=== PATIENT | female | born 1990 | race Caucasian/White ===

== ENCOUNTER → 2017-12-27 | Outpatient (CLI) | payer OTHER ==
[2017-12-27 20:00] LABS: BASO # 0.1 10^3/uL (0.0-0.2); BASO % 0.5 % (0.0-1.0); EOS # 0.1 10^3/uL (0.0-0.50); EOS % 1.2 % (0.0-3.0); HEMATOCRIT 40.2 % (36.0-47.0); HEMOGLOBIN 13.6 g/dl (12.0-15.5); IMMATURE GRANULOCYTE % 0.4 % (0-3.0); LYMPH # 2.9 10^3/uL (1.5-6.5); MEAN CORPUSCULAR HEMOGLOBIN 30.6 pg (27.0-33.0); MEAN CORPUSCULAR HGB CONC 33.8 g/dl (32.0-36.5); MEAN CORPUSCULAR VOLUME 90.3 fl (80.0-96.0); MONO # 0.8 10^3/uL (0.0-0.8); MONO % 7.5 % (0.0-5.0); NEUTROPHILS # 7.1 10^3/uL (1.8-7.7); NEUTROPHILS % 64.4 % (36.0-66.0); PLATELET COUNT, AUTOMATED 271 10^3/uL (150-450); RED BLOOD COUNT 4.45 10^6/uL (4.00-5.40); RED CELL DISTRIBUTION WIDTH 11.9 % (11.5-14.5); WHITE BLOOD COUNT 11.1 10^3/uL (4.0-10.0)
[2017-12-27 20:25] LABS: ANION GAP 10 MEQ/L (8-16); BLOOD UREA NITROGEN 13 MG/DL (7-18); CALCIUM LEVEL 8.5 MG/DL (8.5-10.1); CARBON DIOXIDE LEVEL 26 MEQ/L (21-32); CHLORIDE LEVEL 106 MEQ/L (98-107); CREATININE FOR GFR 0.78 MG/DL (0.55-1.30); GLOMERULAR FILTRATION RATE > 60.0 (>60); GLUCOSE, FASTING 53 MG/DL (70-100); POTASSIUM SERUM 4.1 MEQ/L (3.5-5.1); SODIUM LEVEL 142 MEQ/L (136-145); TOTAL 25(OH) VITAMIN D 23.4 NG/ML (30.0-100.0)
== END ==
LOC: M WUC 16:09
DX: R53.83 Other fatigue (principal); E55.9 Vitamin D deficiency, unspecified

== ENCOUNTER → 2018-09-07 | Outpatient (CLI) | payer OTHER ==
[2018-09-07 19:28] LABS: BASO % 0.3 % (0.0-1.0); EOS # 0.1 10^3/uL (0.0-0.50); EOS % 0.8 % (0.0-3.0); HEMATOCRIT 41.3 % (36.0-47.0); HEMOGLOBIN 14.1 g/dl (12.0-15.5); LYMPH # 2.2 10^3/uL (1.5-6.5); LYMPH % 18.8 % (24.0-44.0); MEAN CORPUSCULAR HEMOGLOBIN 30.5 pg (27.0-33.0); MEAN CORPUSCULAR HGB CONC 34.1 g/dl (32.0-36.5); MEAN CORPUSCULAR VOLUME 89.4 fl (80.0-96.0); MONO # 0.7 10^3/uL (0.0-0.8); MONO % 6.1 % (0.0-5.0); NEUTROPHILS # 8.6 10^3/uL (1.8-7.7); NEUTROPHILS % 73.4 % (36.0-66.0); PLATELET COUNT, AUTOMATED 214 10^3/uL (150-450); RED BLOOD COUNT 4.62 10^6/uL (4.00-5.40); WHITE BLOOD COUNT 11.7 10^3/uL (4.0-10.0)
[2018-09-07 21:10] LABS: CHLAMYDIA DNA AMPLIFICATION NEGATIVE (NEGATIVE); GC DNA AMPLIFICATION NEGATIVE (NEGATIVE)
[2018-09-09 12:18] LABS: HIV 1&2 SCREEN CENTAUR NEGATIVE (NEGATIVE); RUBELLA IgG QUALITATIVE SUSCEPTIBLE (IMMUNE)
== END ==
LOC: M WUC 16:17
PROVIDERS: ATTEND Advanced Practice Midwife
DX: Z34.81 Encounter for supervision of other normal pregnancy, first trimester (principal); Z36.89 Encounter for other specified antenatal screening

== ENCOUNTER → 2018-10-17 | Outpatient (CLI) | payer OTHER | LOC: M WUC 13:42 | PROVIDERS: ATTEND Advanced Practice Midwife | DX: Z34.80 Encounter for supervision of other normal pregnancy, unspecified trimester (principal); Z36.89 Encounter for other specified antenatal screening; Z3A.00 Weeks of gestation of pregnancy not specified ==

== ENCOUNTER → 2018-11-08 | Outpatient (CLI) | payer OTHER ==
--- NOTE | 2018-11-08 08:49 | REP ---
Clinical: Anatomical evaluation. Comparison: None . Findings: Examination demonstrates a single live intrauterine in transverse (head to maternal right) presentation. motion is identified by technologist. Placenta is posterior, grade 0 and low-lying approximately 9 mm from the closed internal os. Amniotic fluid volume is normal. Cervix measures 4.2 cm in length and appears closed. No evidence for nuchal cord. Gestational age by LMP 18 weeks 4 days with HERMINIO 04/07/2019 . Gestational age by current measurements 18 weeks 3 day with HERMINIO 04/08/2019 . FHR equals 150 beats per minute. BPD 4.1 cm 18 weeks 2 days HC 15.3 cm 18 weeks 2 days AC 13.0 cm 18 weeks 4 days FL 2.9 cm 18 weeks 5-day HL 3.0 cm 19 weeks 6 days HC/AC ratio 0.73 Estimated weight 248 grams ( 47th percentile). Anatomical assessment demonstrates normal structures including cranium, choroid plexus, cavum, cerebellum/posterior fossa, facial features, lungs, four-chamber heart, diaphragm, stomach, cord insertion/three-vessel cord, kidneys/bladder, spine, and extremities. Impression: 1. in transverse lie demonstrating appropriate interval growth. 2. Low-lying placenta 9 mm from the closed internal os. 3. With the exception of the poorly visualized ventricular outflow tracts, anatomical assessment is complete and normal. Electronically Signed by Bill Gore MD 11/08/2018 08:41 A
== END ==
LOC: M RAD 06:48
PROVIDERS: ATTEND Advanced Practice Midwife
DX: Z34.82 Encounter for supervision of other normal pregnancy, second trimester (principal); Z3A.18 18 weeks gestation of pregnancy

== ENCOUNTER → 2019-01-13 | Outpatient (CLI) | payer OTHER ==
[2019-01-13 20:39] LABS: HEMOGLOBIN 12.7 g/dl (12.0-15.5); MEAN CORPUSCULAR HEMOGLOBIN 32.1 pg (27.0-33.0); MEAN CORPUSCULAR HGB CONC 34.3 g/dl (32.0-36.5); MEAN CORPUSCULAR VOLUME 93.4 fl (80.0-96.0); PLATELET COUNT, AUTOMATED 152 10^3/uL (150-450); RED BLOOD COUNT 3.96 10^6/uL (4.00-5.40); WHITE BLOOD COUNT 12.7 10^3/uL (4.0-10.0)
== END ==
LOC: M WUC 16:02
PROVIDERS: ATTEND Advanced Practice Midwife
DX: O44.42 Low lying placenta NOS or without hemorrhage, second trimester (principal); Z3A.00 Weeks of gestation of pregnancy not specified

== ENCOUNTER → 2019-01-16 | Outpatient (CLI) | payer OTHER ==
--- NOTE | 2019-01-16 08:50 | REP ---
Obstetric ultrasound for follow-up of anatomy: On the prior study dated 11/08/2018 the right and left cardiac ventricular outflow tracts were not optimally visualized. The anatomy previously was otherwise normal. On the study today the cardiac right ventricular outflow tract is optimally visualized and is unremarkable. The cardiac left ventricular outflow tract is again suboptimally demonstrated. On the study today the facial features are suboptimal but were optimally visualized previously and were unremarkable. On the study today the four-chamber view of the heart is suboptimally demonstrated but was optimally demonstrated previously and was unremarkable. The remainder of the anatomy today is unremarkable and unchanged. There is a single intrauterine gestation in a vertex presentation. There is movement and cardiac activity. The heart rate is 150 beats per minute. The placenta is posterior. There is no placenta previa or abruptio. The placenta is grade 1. The amniotic fluid volume subjectively is normal. Gestational age by today's ultrasound is 28-week 6 days/HERMINIO 04/04/2019. Gestational age by the first ultrasound is 28 weeks 2 days/HERMINIO 07/09/2018. Gestational age by LMP is 27 weeks 0 days/HERMINIO 04/17/2019. weight is 1244 grams/2 pounds, 11 ounces. This is the 49th percentile for 28 weeks 2 days. Electronically Signed by Kunal Sidhu MD 01/16/2019 08:42 A
== END ==
LOC: M RAD 07:31
PROVIDERS: ATTEND Advanced Practice Midwife
DX: O44.42 Low lying placenta NOS or without hemorrhage, second trimester (principal)

== ENCOUNTER → 2019-03-08 | Outpatient (REF) | payer OTHER | LOC: M LAB REF 12:50 | PROVIDERS: ATTEND Advanced Practice Midwife | DX: Z36.85 Encounter for antenatal screening for Streptococcus B (principal) ==

== ENCOUNTER → 2019-03-10 | Outpatient (CLI) | payer OTHER | LOC: M WUC 16:19 | PROVIDERS: ATTEND Advanced Practice Midwife | DX: Z34.83 Encounter for supervision of other normal pregnancy, third trimester (principal); Z3A.00 Weeks of gestation of pregnancy not specified ==

== ENCOUNTER → 2019-03-27 | Outpatient (CLI) | payer OTHER ==
[~2019-03-27] MED LIST: IBUP80TA PO; MAPA500T2 PO; PREN29TA4 PO
--- NOTE | 2019-03-27 17:04 | REP ---
OB ULTRASOUND: Real-time sonographic evaluation of the gravid uterus is performed. There is a single living intrauterine gestation. The estimated gestational age is 38 weeks 2 days based on the first ultrasound EDC 04/08/2019. Today's measurements indicate appropriate growth. BPD 92 mm 37 weeks 1 day, 35th percentile. HC 332 mm 37 weeks 6 days, 44th percentile. AC 343 mm = 38 weeks day, 49th percentile. Femur length 75 mm = 38 weeks 1 day, 48th percentile. HC/AC ratio 0.97 within normal range. Estimated weight 3367 grams at the 55th percentile. Cervix is closed and measures 3.8 cm in length. heart rate 157 beats per minute. Amniotic fluid within normal limits, WHITLEY 20.4 within normal range of 7.3 to 23.6. SD ratio 1.96 within normal range of 1.6 to 2.6. RI 0.49. The visualized anatomy today includes stomach, three vessel cord, kidneys and bladder which are all grossly unremarkable. position is vertex. Placenta is posterior and grade 1 with no previa or abruption. Electronically Signed by Kunal Mayfield MD 03/27/2019 11:48 P
== END ==
LOC: M RAD 15:06
PROVIDERS: ATTEND Advanced Practice Midwife
DX: O26.843 Uterine size-date discrepancy, third trimester (principal); Z3A.38 38 weeks gestation of pregnancy

== ENCOUNTER 2019-03-31 08:57 | Inpatient (IN) | payer OTHER ==
[2019-03-31] VITALS (21 sets, daily range): BP systolic 100–152; BP diastolic 56–87
[~2019-03-31] VITALS: Ht 165.1 cm; Wt 99.0 kg
[2019-03-31] MEDS ORDERED: MAPA500T2 PO (09:23)
[2019-03-31] MEDS ORDERED: PREN29TA4 PO (09:23)
[2019-03-31] MEDS ORDERED: PENICILLIN G POTASSIUM IV 5 MU in D5W MINI-BAG PLUS 100 ML IV STA (09:39)
[2019-03-31] MEDS ORDERED: LACTATED RINGER'S 1000 ML IV STA (09:39)
[2019-03-31] MEDS ORDERED: LR 1,000 ML IV SCH (09:39)
[2019-03-31] MEDS ORDERED: OXYTOCIN DRIP 30 UNITS in IV 1 EA IV SCH (09:45)
--- NOTE | 2019-03-31 09:52 | HPEPDOC ---
Obstetrical History & Physical General Date of Admission Mar 31, 2019 at 09:34 History of Present Illness Chief Complaint: LOF, term Information Provided By: Patient Age: 29 : 1 Term: 0 Pre-term: 0 Abortions: 0 Livin Care Care: Good Care Dating Final EDC by: LMP EGA at Admission: 39 Antepartum Course Height (inches): 65 Pre- weight (lbs.): 190 Admission Weight (lbs.): 222 Past Medical History Past Obstetrical History : Past Obstetrical History: Primgravida [employer] History: No pertinent history Past Medical History Medical History Noncontributory Surgical History: Tooth extraction Family History Significant Family History: Cancer (colon, breast, uterine), Other (spina bifida) Social History Marital Status: Family situation: Spouse/partner home Psychosocial History: No pertinent psych hx * Smoker: non-smoker Alcohol: Denies Drugs: denies Abuse Violence Screening Have you been hit/kicked/slapp: No Imunizations Tdap status: current Influenza Status: current Allergies Coded Allergies: No Known Allergies (Unverified , 03/31/19) Medications Scheduled Prenat 115/Iron Fum/Folic/Dss ( 19 Tablet) 1 Each Tablet, 1 TAB PO DAILY Miscellaneous Medications Acetaminophen (Mapap) 500 Mg Tablet, 500 MG PO Physical Examination Physical Examination GENERAL: Alert and oriented times three. BREAST: . ABDOMEN: Gravid and non-tender to touch. FETUS: Is vertex (VTX) by sterile vaginal examination (SVE), fetus is vertex (VTX) by Pascual. Copious clear fluid draining per vagina HEART RATE: Regular rate and rhythm. LUNGS: Clear to auscultation (CTA). EXTREMITIES: No edema. No clonus. Deep tendon reflexes (DTRs) + 2. Vital Signs/I&O Vital Signs Date Time Temp Pulse Resp B/P (MAP) Pulse Ox O2 Delivery O2 Flow Rate FiO2 03/31/19 09:24 97.8 69 18 130/83 (99) Laboratory Data 24H LABS Laboratory Tests 2 03/31/19 09:36: Serology Scanned Report Hepatitis B Testing Pertinent Laboratoy Data Blood Type: O+ RBC Antibody Screen: Negative HIV: Negative Hepatitis B: Negative Hepatitis C: Negative Rapid Plasma Reagin: Nonreactive Rubella: Nonreactive (immunize ) Chlamydia/Gonorrhea: Negative Group B Streptococcus: Positive Quad Screen Test: Negative Glucose Tolerance Test: 106 Anatomy Ultrasound Ultrasound Date: November 08, 2018 Placenta Location: Posterior (low-lying) Normal Anatomy: Yes Placenta Previa: No (low-lying 9 mm from cervical os) Estimated Weight (grams): 248 Other Ultrasounds 09/07/2018, dating consistent with 9 weeks 6 days HERMINIO 04/06/2019 01/16/2019. Follow-up ultrasound low-lying placenta, resolved Steroid Therapy Steroid Therapy: No Vaginal Examination Dilation: 3 cm Effacement: 80% Station: -2 Cervical Consistency: Soft Cervical Position: Middle Presentation: Cephalic presentation Assessment Heart Rate (FHR): 145 Variability: Moderate Accelerations: Positive Decelerations: None Tocometer Contractions: Yes Frequency: irregular Duration: less than 60 seconds Strength: palpated as mild Multi-drug resistant Organism: No history of MDRO Assessment/Plan Assessment Omi is a 29-year-old (G), 1 para (P) 0 -0 -0-0 at, 39 + 0 weeks by 9-week ultrasound. Presents to Labor and Delivery (L&D) with complaints of spontaneous rupture of the membranes, clear fluid at 0730 this morning. Denies feeling contractions. Reports good movement Plan Admit and orient. Patient Services Rep and consent. Diet: Clear liquids. Group B Streptococcus (GBS), positive. Labs and intravenous (IV) per unit protocol. Counseled on Pitocin and augmentation or induction of labor (IOL). Lactated Ringers (LR): Bolus 500 mL, then at 125 mL/hr. Patient is planning an epidural. Anticipate normal spontaneous vaginal delivery. C-S as appropriate. Lindsay Tate CNM Mar 31, 2019 09:52
[2019-03-31 10:32] LABS: HEMATOCRIT 37.1 % (36.0-47.0); HEMOGLOBIN 12.7 g/dl (12.0-15.5); MEAN CORPUSCULAR HEMOGLOBIN 30.6 pg (27.0-33.0); MEAN CORPUSCULAR HGB CONC 34.2 g/dl (32.0-36.5); MEAN CORPUSCULAR VOLUME 89.4 fl (80.0-96.0); PLATELET COUNT, AUTOMATED 164 10^3/uL (150-450); RED BLOOD COUNT 4.15 10^6/uL (4.00-5.40); WHITE BLOOD COUNT 9.9 10^3/uL (4.0-10.0)
[2019-03-31] MEDS ORDERED: PENICILLIN G POTASSIUM IV 2.5 MU in IV 1 EA IV SCH (14:00)
--- NOTE | 2019-03-31 15:25 | DNPDOC ---
[facility] Delivery Note Delivery Note DATE OF DELIVERY: 03/31/2019 PREDELIVERY DIAGNOSIS: 39-0/7 weeks' gestation and labor. POST DELIVERY DIAGNOSIS: Delivered. PROCEDURE:. Spontaneous vaginal delivery. Provider: Lindsay Tate CNM ANESTHESIA: None. ESTIMATED BLOOD LOSS:. 500 mL. FINDINGS: 7 pound 14 ounce, 3570 g male , Score, 8/, 9, no nuchal cord. DELIVERY SUMMARY: Patient is a 29-year-old 1 now para 1 -0 -0-1 who was admitted to labor and delivery for. Spontaneous rupture of membranes this morning at 0 7:30. She received Pitocin augmentation of her labor and coped physiologically. Fully dilated at 1339. Viable male delivered MICHAELLE, restitution to ROP at 1413. Spontaneous respirations. Transitioned on the maternal abdomen. Cord doubly clamped and cut by the father of the baby under my direction once pulsations ceased. Apgars 8 and 9. Placenta Carrillo intact with a three-vessel cord at 1421. Fundus firmed with massage and IV Pitocin bolus. However, brisk bleeding continued. Misoprostol 1000 g HI provided with good control of bleeding. Estimated blood loss 500 mL. Second-degree perineal laceration noted, infiltrated with lidocaine 1% and reapproximated using 3-0 Vicryl Rapide. Bilateral labial abrasions were also noted. The right one was infiltrated with lidocaine and repaired with the same suture 1 stitch. Sponge, sharp and instrument count correct. Parents are naming their son, Ba CamaraLindsay rosen CNM Mar 31, 2019 15:25
[2019-03-31] MEDS ORDERED: ACETAMINOPHEN TAB 650MG DOSE (2X325MG) PO PRN (15:30)
[2019-03-31] MEDS ORDERED: ANUSOL HC CREAM 30GM TOP PRN (15:30)
[2019-03-31] MEDS ORDERED: IBUPROFEN 800 MG TAB PO PRN (15:30)
[2019-03-31] MEDS ORDERED: DOCUSATE SODIUM 100 MG CAP PO PRN (15:30)
[2019-03-31] MEDS ORDERED: RHOGAM 300 MCG (1500 IU) INJ (J2790) IM SCH (15:30)
[2019-03-31] MEDS ORDERED: DIBUCAINE 1% OINTMENT 30GM TOP PRN (15:30)
[2019-03-31] MEDS ORDERED: LIDOCAINE 1% MDV 20ML VIAL INFIL ONE (15:30)
[2019-03-31] MEDS ORDERED: MOM 30ML SUSPENSION UDC PO PRN (15:30)
[2019-03-31] MEDS ORDERED: MEASLES,MUMPS,RUBELLA VACCINE INJ (MMR-II) (90707) SC SCH (15:30)
[2019-03-31] MEDS ORDERED: miSOPROStol 200 MCG TAB (S0191) PR ONE (15:30)
[2019-03-31] MEDS ORDERED: ACETAMINOPHEN 500 MG TAB PO PRN (15:30)
[2019-03-31] MEDS: METHYLERGONOVINE MALEATE 0.2 MG TAB PO SCH ×2 (15:41→22:14)
[2019-03-31] MEDS ORDERED: SLF 3 ML SYR IV PRN (17:15)
[2019-03-31] MEDS: IBUPROFEN 600 MG TAB PO PRN (19:53)
[2019-03-31] MEDS: SLF 3 ML SYR IV SCH (22:15)
[2019-04-01] MEDS ORDERED: miSOPROStol 200 MCG TAB (S0191) As Ordered ONE (03:47)
[2019-04-01] MEDS: METHYLERGONOVINE MALEATE 0.2 MG TAB PO SCH ×2 (04:33→10:00)
[2019-04-01] MEDS: IBUPROFEN 600 MG TAB PO PRN ×2 (04:41→19:24)
[2019-04-01 05:26] VITALS: BP 120/72
[2019-04-01] MEDS: SLF 3 ML SYR IV SCH ×2 (05:37→14:00)
--- NOTE | 2019-04-01 07:10 | IPNPDOC ---
Text Note Date of Service The patient was seen on 04/01/19. NOTE Feels well. on demand. Adequate pain management. Voiding VSS, afebrile and normotensive Breasts soft, nipples intact Fundus firm, NT, down 2 Lochia rubra light without odor Perineum well approximated without edema PPD #1 Routine care. Anticipate D/C in am VS,Fishbone, I+O VS, Fishbone, I+O Laboratory Tests 03/31/19 10:00 Red Blood Count 4.15, Mean Corpuscular Volume 89.4, Mean Corpuscular Hemoglobin 30.6, Mean Corpuscular Hemoglobin Concent 34.2, Red Cell Distribution Width 12.9 Vital Signs Date Time Temp Pulse Resp B/P (MAP) Pulse Ox O2 Delivery O2 Flow Rate FiO2 04/01/19 05:26 98.3 59 16 120/72 (88) 03/31/19 16:24 98 I&O- Last 24 Hours up to 6 AM 04/01/19 06:00 Intake Total 1580 ml Output Total 875 ml Balance 705 ml Lindsay Tate CNM Apr 01, 2019 07:10
[2019-04-01] MEDS ORDERED: PRENATAL VITAMINS CHEWABLE TABLET PO SCH (09:00)
[2019-04-01] MEDS: PRENATAL VITAMINS CHEWABLE TABLET PO SCH (10:00)
[2019-04-01 18:00] VITALS: BP 123/67
[2019-04-01] MEDS ORDERED: METHYLERGONOVINE MALEATE 0.2 MG TAB PO PRN (18:00)
[2019-04-02 06:13] VITALS: BP 117/66
[2019-04-02] MEDS: PRENATAL VITAMINS CHEWABLE TABLET PO SCH (08:49)
[2019-04-02] MEDS ORDERED: IBUP80TA PO (09:47)
== END 2019-04-02 18:00 | disposition home or self-care (01) | DRG 807 ==
LOC: M LDO 08:57 → M LDI 09:34 → M OBS 17:20
PROVIDERS: ADMIT Advanced Practice Midwife; ATTEND Advanced Practice Midwife
PROC: 10E0XZZ Delivery of Products of Conception, External Approach (ICD-10-PCS; principal; 2019-03-31)
PROC: 0KQM0ZZ Repair Perineum Muscle, Open Approach (ICD-10-PCS; 2019-03-31)
DX: O42.12 Full-term premature rupture of membranes, onset of labor more than 24 hours following rupture (principal); Z37.0 Single live birth; Z3A.39 39 weeks gestation of pregnancy; O99.820 Streptococcus B carrier state complicating pregnancy; O70.1 Second degree perineal laceration during delivery

== ENCOUNTER → 2019-07-13 | Outpatient (CLI) | payer OTHER | LOC: M PLALAB 09:49 | PROVIDERS: ATTEND Advanced Practice Midwife | DX: Z12.4 Encounter for screening for malignant neoplasm of cervix (principal); Z15.09 Genetic susceptibility to other malignant neoplasm | CPT/HCPCS: 36415; G0123 ==

== ENCOUNTER → 2019-12-27 | Outpatient (REF) | payer OTHER ==
[2019-12-27 12:39] LABS: HEMATOCRIT 37.8 % (36.0-47.0); HEMOGLOBIN 13.1 g/dl (12.0-15.5); MEAN CORPUSCULAR HEMOGLOBIN 30.5 pg (27.0-33.0); MEAN CORPUSCULAR HGB CONC 34.7 g/dl (32.0-36.5); MEAN CORPUSCULAR VOLUME 87.9 fl (80.0-96.0); PLATELET COUNT, AUTOMATED 190 10^3/uL (150-450); WHITE BLOOD COUNT 8.1 10^3/uL (4.0-10.0)
[2019-12-27 13:27] LABS: HEPATITIS C VIRUS ABY INDEX 0.1 INDEX (<0.8); HIV 1&2 SCREEN CENTAUR NEGATIVE (NEGATIVE)
[2019-12-27 14:06] LABS: CHLAMYDIA DNA AMPLIFICATION NEGATIVE (NEGATIVE); GC DNA AMPLIFICATION NEGATIVE (NEGATIVE)
== END ==
LOC: M PLALAB 08:40
PROVIDERS: ATTEND Advanced Practice Midwife
DX: Z34.81 Encounter for supervision of other normal pregnancy, first trimester (principal)

== ENCOUNTER → 2020-02-12 | Outpatient (CLI) | payer OTHER | LOC: M RAD 14:49 | PROVIDERS: ATTEND Advanced Practice Midwife | DX: E71.510 Zellweger syndrome (principal) ==

== ENCOUNTER → 2020-02-27 | Outpatient (CLI) | payer OTHER ==
--- NOTE | 2020-03-18 16:38 | REP ---
FOLLOW-UP OBSTETRIC ULTRASOUND: 02/27/20 CLINICAL: Follow-up anatomic assessment. COMPARISON: 02/12/20 TECHNIQUE: Transabdominal obstetric ultrasound with color Doppler evaluation. FINDINGS: Ultrasound examination demonstrates a single live intrauterine is cephalic presentation. Placenta is noted posterolaterally towards the right and grade 0 without placenta previa or abruption. Amniotic fluid volume is normal. The cervix measures 5.5cm in length and appears closed. HEART RATE: 162bpm BPD: 51mm; 21 weeks 4 days HC: 187mm; 21 weeks 0 days AC: 161mm; 21 weeks 1 day FL: 35mm; 21 weeks 1 day HL: 33mm; 21 weeks 2 days Estimated age by current measurements 21 weeks 2 days. Anatomical assessment demonstrates normal cisterna magna, cavum, thalamus, spine, stomach, kidneys/bladder, four chamber heart/ventricular outflow tracts, three vessel cord/cord insertion, facial features and extremities. IMPRESSION: Single live intrauterine in cephalic presentation demonstrating appropriate estimated growth. Anatomical assessment is complete and normal. No gross abnormalities are identified. MTDD
== END ==
LOC: M RAD 06:13
PROVIDERS: ATTEND Advanced Practice Midwife
DX: Z34.82 Encounter for supervision of other normal pregnancy, second trimester (principal); Z3A.21 21 weeks gestation of pregnancy

== ENCOUNTER → 2020-03-13 | Outpatient (REF) | payer OTHER | LOC: M SFHCWAGY 17:06 | PROVIDERS: ATTEND Advanced Practice Midwife | DX: Z34.82 Encounter for supervision of other normal pregnancy, second trimester (principal); Z3A.00 Weeks of gestation of pregnancy not specified ==

== ENCOUNTER → 2020-04-02 | Outpatient (CLI) | payer OTHER ==
[2020-04-02 15:40] LABS: BASO % 0.1 % (0.0-1.0); EOS # 0.1 10^3/uL (0.0-0.5); EOS % 0.7 % (0.0-3.0); HEMOGLOBIN 11.9 g/dl (12.0-15.5); LYMPH # 1.4 10^3/uL (1.5-5.0); LYMPH % 13.1 % (24.0-44.0); MEAN CORPUSCULAR HEMOGLOBIN 29.8 pg (27.0-33.0); MEAN CORPUSCULAR HGB CONC 33.1 g/dl (32.0-36.5); MEAN CORPUSCULAR VOLUME 90.2 fl (80.0-96.0); MONO # 0.5 10^3/uL (0.0-0.8); MONO % 4.9 % (0.0-5.0); NEUTROPHILS # 8.3 10^3/uL (1.5-8.5); NEUTROPHILS % 80.3 % (36.0-66.0); PLATELET COUNT, AUTOMATED 183 10^3/uL (150-450); RED BLOOD COUNT 3.99 10^6/uL (4.00-5.40); WHITE BLOOD COUNT 10.3 10^3/uL (4.0-10.0)
== END ==
LOC: M WUC 11:52
PROVIDERS: ATTEND Advanced Practice Midwife
DX: Z34.82 Encounter for supervision of other normal pregnancy, second trimester (principal); Z3A.00 Weeks of gestation of pregnancy not specified

== ENCOUNTER → 2020-04-08 | Outpatient (CLI) | payer OTHER | LOC: M LAB 06:55 | PROVIDERS: ATTEND Advanced Practice Midwife | DX: Z34.83 Encounter for supervision of other normal pregnancy, third trimester (principal); Z3A.00 Weeks of gestation of pregnancy not specified ==